=== PATIENT | female | born 1990 | race Caucasian/White ===

== ENCOUNTER 2018-01-10 11:25 | Emergency (ER) | payer MEDICAID, OTHER ==
[2018-01-10 11:35] VITALS: RESP 16; TEMP 98.2; O2SAT 99
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
[2018-01-10 12:55] VITALS: BP 129/82; PULSE 100
== END 2018-01-10 12:55 | disposition home or self-care (01) ==
DX: S39.012A Strain of muscle, fascia and tendon of lower back, initial encounter (principal); J45.909 Unspecified asthma, uncomplicated; F17.200 Nicotine dependence, unspecified, uncomplicated; Z87.39 Personal history of other diseases of the musculoskeletal system and connective tissue; X50.0XXA Overexertion from strenuous movement or load, initial encounter

== ENCOUNTER 2018-08-31 07:22 | Emergency (ER) | payer MEDICAID, OTHER ==
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
[2018-08-31] MEDS ORDERED: AZITHROMYCIN 250 MG TAB PO ONE (08:31)
[2018-08-31] MEDS ORDERED: ULIPRISTAL ACETATE 30 MG TAB PO ONE (08:31)
[2018-08-31 11:14] VITALS: BP 120/84
== END 2018-08-31 10:30 | disposition home or self-care (01) ==
LOC: EEVIPCON 07:22
DX: T74.21XA Adult sexual abuse, confirmed, initial encounter (principal); F17.200 Nicotine dependence, unspecified, uncomplicated; Y07.9 Unspecified perpetrator of maltreatment and neglect
CPT/HCPCS: J0696

== ENCOUNTER 2019-01-20 20:33 | Emergency (ER) | payer MEDICAID, OTHER ==
[2019-01-20] MEDS ORDERED: ONDANSETRON 4 MG/2 ML VIAL IVP ONE (20:50)
[2019-01-20] MEDS ORDERED: HYDROmorphONE/DILAUDID 2 MG/ML INJ IVP ONE (20:50)
[2019-01-20] MEDS ORDERED: NS 1,000 ML IV ONE (20:50)
[2019-01-20] MEDS ORDERED: ONDANSETRON 4 MG/2 ML VIAL ONE (20:51)
[2019-01-20] MEDS ORDERED: HYDROmorphONE/DILAUDID 1 MG/ML INJ ONE (20:51)
--- NOTE | 2019-01-20 20:53 | EDPHY ---
H & P Stated Complaint: abd pain nvd Time Seen by Provider: 01/20/19 20:44 HPI/ROS: CHIEF COMPLAINT: Right lower quadrant pain HISTORY OF PRESENT ILLNESS: Patient is a 28-year-old female who comes to the emergency department complaining of right lower quadrant pain that began 2 hr ago and is severe. She states that she had diarrhea several times earlier today and this has subsided. She then began having abdominal pain a couple of hours ago and has vomited twice nonbloody. No fever. No history of abdominal surgery. She does have previous history of ovarian cysts and is not sure if this is similar. No vaginal bleeding or discharge. She states she does finished her period last week. She denies risk of . She has never had pain like this before. Feels better to lay on her left side. No trauma. No fever. Severity: Severe Modifying factors: Worsened by lying flat on her back. REVIEW OF SYSTEMS: Constitutional: denies: chills, fever, recent illness, recent injury EENTM: denies: blurred vision, double vision, nose congestion Respiratory: denies: cough, shortness of breath Cardiac: denies: chest pain, irregular heart rate, lightheadedness, palpitations Gastrointestinal/Abdominal: See HPI Genitourinary: denies: dysuria, frequency, hematuria, pain Musculoskeletal: denies: joint pain, muscle pain Skin: denies: lesions, rash, jaundice, bruising Neurological: denies: headache, numbness, paresthesia, tingling, dizziness, weakness Hematologic/Lymphatic: denies: blood clots, easy bleeding, easy bruising Immunologic/allergic: denies: HIV/AIDS, transplant 10 systems reviewed and negative except as noted EXAM: GENERAL: Crying, screaming out in pain, HEAD: Atraumatic, normocephalic. EYES: Pupils equal round and reactive to light, extraocular movements intact, sclera anicteric, conjunctiva are normal. ENT: TMs normal, nares patent, oropharynx clear without exudates. Moist mucous membranes. NECK: Normal range of motion, supple without lymphadenopathy or JVD. LUNGS: Breath sounds clear to auscultation bilaterally and equal. No wheezes rales or rhonchi. HEART: Regular rate and rhythm without murmurs, rubs or gallops. ABDOMEN: Diffuse pain that appears to radiate to the right lower quadrant. Moderate guarding. BACK: No CVA tenderness, no spinal tenderness, step-offs or deformities EXTREMITIES: Normal range of motion, no pitting or edema. No clubbing or cyanosis. NEUROLOGICAL: Cranial nerves II through XII grossly intact. Normal speech, normal gait. 5/5 strength, normal movement in all extremities, normal sensation , normal reflexes PSYCH: Normal mood, normal affect. SKIN: Warm, dry, normal turgor, no visible rashes or lesions. Source: Patient Exam Limitations: No limitations - Personal History LMP (Females 10-55): 1-7 Days Ago Current Tetanus/Diphtheria Vaccine: Yes Current Tetanus Diphtheria and Acellular Pertussis (TDAP): Yes Tetanus Vaccine Date: 2009 - Medical/Surgical History Hx Asthma: Yes Hx Chronic Respiratory Disease: No Hx Diabetes: No Hx Cardiac Disease: No Hx Renal Disease: No Hx Cirrhosis: No Hx Alcoholism: No Hx HIV/AIDS: No Hx Splenectomy or Spleen Trauma: No Other PMH: Asthma - Family History Significant Family History: No pertinent family hx - Social History Smoking Status: Heavy smoker Alcohol Use: None Constitutional: Initial Vital Signs Temperature (C) 36.6 C 01/20/19 20:36 Heart Rate 132 H 01/20/19 20:36 Respiratory Rate 19 01/20/19 20:36 Blood Pressure 134/98 H 01/20/19 20:36 O2 Sat (%) 98 01/20/19 20:36 O2 Delivery Mode Room Air Allergies/Adverse Reactions: latex Allergy (Intermediate, Verified 10/08/16 22:42) Hives Home Medications: Medication Instructions Recorded Ondansetron Odt [Zofran Odt 4 mg 4 mg PO Q4 PRN #20 tab 01/20/19 (RX)] Xanax 01/20/19 morphINE IR [morphINE IR 15 mg (*)] 15 mg PO Q3-4PRN PRN #14 tab 01/20/19 Medical Decision Making - Diagnostics Imaging: Discussed imaging studies w/ diesel trailer mechanic Radiologist ED Course/Re-evaluation: 9:20 p.m. the patient is still writhing in pain. She has received Dilaudid. I will order ketamine. 10:20 p.m. the patient's pain is controlled and she was resting in the room and then her pain seemed to increase. Will treat with Toradol and Valium. She takes Xanax regularly for anxiety. Her states that she has been dealing with what they thought was an ovarian cyst for about 3 months. Previously she had been on control to help control them but is not currently. We discussed follow-up with OBGYN and expected management verses medication verses procedural. Awaiting ultrasound official report. 10:45 p.m. We discussed the ultrasound. Patient and are very much relieved. We had a long discussion about pain management home as well as follow -up with OBGYN and hormone treatment. Patient remains quite dramatic but pain seems to be controlled. Will plan to discharge with prescriptions. Differential Diagnosis: Partial list of the Differential diagnosis considered include but were not limited to; ovarian cyst, ovarian torsion, appendicitis, and although unlikely based on the history and physical exam, I also considered kidney stone, urinary tract infection, , ectopic. - Data Points Laboratory Results: Laboratory Results 01/20/19 20:51 01/20/19 20:51 Medications Given: Discontinued Medications Diazepam (Valium) 5 mg IVP EDNOW ONE Stop: 01/20/19 22:20 Last Admin: 01/20/19 22:26 Dose: 5 mg Hydromorphone HCl (Dilaudid) 1 mg IVP EDNOW ONE Stop: 01/20/19 20:51 Last Admin: 01/20/19 20:57 Dose: 1 mg Sodium Chloride (Ns) 1,000 mls @ 0 mls/hr IV EDNOW ONE; Wide Open PRN Reason: Protocol Stop: 01/20/19 20:51 Last Admin: 01/20/19 20:56 Dose: 1,000 mls Ketamine HCl (Ketamine) 15 mg IVP EDNOW ONE Stop: 01/20/19 21:19 Last Admin: 01/20/19 21:30 Dose: 15 mg Ketorolac Tromethamine (Toradol) 30 mg IVP EDNOW ONE Stop: 01/20/19 22:19 Last Admin: 01/20/19 22:24 Dose: 30 mg Ondansetron HCl (Zofran) 4 mg IVP EDNOW ONE Stop: 01/20/19 20:51 Last Admin: 01/20/19 20:56 Dose: 4 mg Ondansetron HCl (Zofran Odt 4 Mg Prepack#2) 1 btl TAKEHOME EDNOW ONE Stop: 01/20/19 22:36 Last Admin: 01/20/19 23:03 Dose: 1 btl Oxycodone/Acetaminophen (Percocet 5/325mg Prepack#4) 1 btl TAKEHOME EDNOW ONE Stop: 01/20/19 22:36 Last Admin: 01/20/19 23:02 Dose: 1 btl Departure - Departure Disposition: Home, Routine, Self-Care Clinical Impression: Ovarian cyst, right Condition: Fair Instructions: Oxycodone/Acetaminophen (By mouth), Ondansetron (By mouth), Ovarian Cyst (ED) Referrals: NONE *PRIMARY CARE P,. [Primary Care Provider] - As per Instructions Prescriptions: morphINE IR [morphINE IR 15 mg (*)] 15 mg PO Q3-4PRN PRN #14 tab PRN Reason: Pain, Severe Ondansetron Odt [Zofran Odt 4 mg (RX)] 4 mg PO Q4 PRN #20 tab PRN Reason: Nausea & Vomiting
[2019-01-20 21:09] LABS: PLATELET COUNT 377 10^3/uL (150-400)
[2019-01-20] MEDS ORDERED: KETAMINE 200 MG/20 ML VIAL IVP ONE (21:18)
[2019-01-20] MEDS ORDERED: KETAMINE 200 MG/20 ML VIAL ONE (21:19)
[2019-01-20] MEDS ORDERED: KETOROLAC 30 MG/1 ML SDV IVP ONE (22:18)
[2019-01-20] MEDS ORDERED: DIAZEPAM 5 MG/ML 1 ML SYR IVP ONE (22:19)
[2019-01-20] MEDS ORDERED: ONDANSETRON 4MG PREPACK#2 BTL TAKEHOME ONE (22:35)
[2019-01-20] MEDS ORDERED: OXYCODONE/APAP 5/325MG PREPACK#4 BTL TAKEHOME ONE (22:35)
[2019-01-20 23:08] VITALS: BP 115/80
== END 2019-01-20 23:07 | disposition home or self-care (01) ==
DX: N83.291 Other ovarian cyst, right side (principal); E86.9 Volume depletion, unspecified
CPT/HCPCS: 96374; J1170; J1885; J2405; J3360

== ENCOUNTER 2019-02-19 00:26 | Inpatient (IN) | payer OTHER ==
[2019-02-19] MEDS ORDERED: NS 2,000 ML IV ONE (00:34)
--- NOTE | 2019-02-19 00:38 | EDPHY ---
H & P Source: Patient, EMS Exam Limitations: Clinical condition, Intoxication - Personal History Tetanus Vaccine Date: 2009 - Medical/Surgical History Hx Asthma: Yes Hx Chronic Respiratory Disease: No Hx Diabetes: No Hx Cardiac Disease: No Hx Renal Disease: No Hx Cirrhosis: No Hx Alcoholism: No Hx HIV/AIDS: No Hx Splenectomy or Spleen Trauma: No Other PMH: Asthma - Social History Smoking Status: Heavy smoker Time Seen by Provider: 02/19/19 00:35 HPI/ROS: HPI CHIEF COMPLAINT: Polysubstance overdose, SI HISTORY OF PRESENT ILLNESS: Patient is a 28-year-old female she arrives to the emergency room by EMS for polysubstance overdose it is reported that she drank a unknown amount of alcohol, took morphine sulfate, as well as numerous tabs of Ambien. When EMS arrived they found her unresponsive, however they gave her 2 mg IV Narcan and this caused her to become awake. She did not vomit and she did not become agitated. They transported her here upon arrival she is intoxicated however answers my questions. She states she did not wake up in the mornings reason why she took all these medications. She is unsure how much morphine and Ambien she took. Past Medical History: History of depression, bipolar disorder Past Surgical History: Denies surgical history Social History: Alcohol this evening unknown amount. Family History: Noncontributory ROS REVIEW OF SYSTEMS: Limited due to intoxication and mental state, Exam Constitutional triage nursing summary reviewed, vital signs reviewed, awake/ alert. Tachycardic in the 1 teens. Eyes normal conjunctivae and sclera, EOMI, PERRLA. HENT normal inspection, atraumatic, moist mucus membranes, no epistaxis, neck supple/ no meningismus, no raccoon eyes. Respiratory clear to auscultation bilaterally, normal breath sounds, no respiratory distress, no wheezing. Cardiovascular tachycardia, regular rhythm, no murmur, no edema, distal pulses normal. Gastrointestinal soft, non-tender, no rebound, no guarding, normal bowel sounds, no distension, no pulsatile mass. Genitourinary no CVA tenderness. Musculoskeletal no midline vertebral tenderness, full range of motion, no calf swelling, no tenderness of extremities, no meningismus, good pulses, neurovascularly intact. Skin left wrist: Superficial vertically oriented multiple lacerations, none of which require suture. . Neurologic awake, alert and oriented x 3, AAOx3, moves all 4 extremities equally, motor intact, sensory intact, CN II-XII intact, normal cerebellar, normal vision, normal speech. Psychiatric tearful, flat affect, depressed, suicidal Heme/Lymph/Immune no lymphadenopathy. Differential Diagnosis: Includes but is not limited to in a particular order polysubstance overdose, alcohol intoxication, narcotic overdose, Ambien overdose Medical Decision Making: Plan for this patient IV establishment IV fluid bolus , EKG for overdose, basic labs, Tylenol salicylate level, IV fluids, monitoring analyst, pulse ox in close monitoring. If patient recent dates may need to give Narcan. Re-evaluation: EKG interpretation by me on record in [employer] system. Impression time of EKG 005: Sinus rhythm rate of 96 no prolonged intervals. Unremarkable EKG. Alcohol level 196. Potassium low at 2.9 will be repleted. 0655: Patient signed over at 7:[address] Marshall. Patient pending eval. On m1, SI, Etoh. Slowly sobering. Ambualted well to the bathroom. ( Marshal Vicente) Constitutional: Initial Vital Signs Temperature (C) 36.8 C 02/19/19 00:30 Heart Rate 119 H 02/19/19 00:30 Respiratory Rate 18 02/19/19 00:30 Blood Pressure 146/98 H 02/19/19 00:30 O2 Sat (%) 94 02/19/19 00:30 O2 Delivery Mode Room Air O2 (L/minute) 2 Allergies/Adverse Reactions: latex Allergy (Intermediate, Verified 02/19/19 00:46) Hives Home Medications: Medication Instructions Recorded Ondansetron Odt [Zofran Odt 4 mg 4 mg PO Q4 PRN #20 tab 01/20/19 (RX)] Xanax 01/20/19 morphINE IR [morphINE IR 15 mg (*)] 15 mg PO Q3-4PRN PRN #14 tab 01/20/19 Clindamycin 150 mg PO 02/19/19 Ibuprofen 600 mg PO 02/19/19 Zolpidem Tartrate [Ambien 5MG (*)] 5 mg PO HS 02/19/19 Medical Decision Making Other Provider: Accepted for transfer to by Francisco SHAW. (Wilfrido Marshall) - Data Points Laboratory Results: Laboratory Results 02/19/19 00:44 02/19/19 00:44 02/19/19 02/19/19 02/19/19 06:50 00:44 00:44 WBC RBC Hgb Hct MCV MCH MCHC RDW Plt Count MPV Neut % (Auto) Lymph % (Auto) [place] % (Auto) Eos % (Auto) Baso % (Auto) Nucleat RBC Rel Count Absolute Neuts (auto) Absolute Lymphs (auto) Absolute Monos (auto) Absolute Eos (auto) Absolute Basos (auto) Absolute Nucleated RBC Immature Gran % Immature Gran # Sodium Potassium Chloride Carbon Dioxide Anion Gap BUN Creatinine Estimated GFR Glucose Calcium Beta HCG, Qual NEGATIVE Salicylates Urine Opiates Screen NEGATIVE (NEGATIVE) Acetaminophen < 10 mcg/mL L mcg/mL (10-30) Urine Barbiturates NEGATIVE (NEGATIVE) Ur Phencyclidine Scrn NEGATIVE (NEGATIVE) Ur Amphetamine Screen NEGATIVE (NEGATIVE) U Benzodiazepines Scrn NEGATIVE (NEGATIVE) Urine Cocaine Screen NEGATIVE (NEGATIVE) U Marijuana (THC) Screen NEGATIVE (NEGATIVE) Ethyl Alcohol 02/19/19 02/19/19 00:44 00:44 WBC 4.83 10^3/uL 10^3/uL (3.80-9.50) RBC 3.96 10^6/uL L 10^6/uL (4.18-5.33) Hgb 13.5 g/dL g/dL (12.6-16.3) Hct 38.9 % % (38.0-47.0) MCV 98.2 fL fL (81.5-99.8) MCH 34.1 pg pg (27.9-34.1) MCHC 34.7 g/dL g/dL (32.4-36.7) RDW 13.2 % % (11.5-15.2) Plt Count 275 10^3/uL 10^3/uL (150-400) MPV 9.4 fL fL (8.7-11.7) Neut % (Auto) 45.8 % % (39.3-74.2) Lymph % (Auto) 40.0 % % (15.0-45.0) [place] % (Auto) 11.6 % % (4.5-13.0) Eos % (Auto) 1.0 % % (0.6-7.6) Baso % (Auto) 1.0 % % (0.3-1.7) Nucleat RBC Rel Count 0.0 % % (0.0-0.2) Absolute Neuts (auto) 2.21 10^3/uL 10^3/uL (1.70-6.50) Absolute Lymphs (auto) 1.93 10^3/uL 10^3/uL (1.00-3.00) Absolute Monos (auto) 0.56 10^3/uL 10^3/uL (0.30-0.80) Absolute Eos (auto) 0.05 10^3/uL 10^3/uL (0.03-0.40) Absolute Basos (auto) 0.05 10^3/uL 10^3/uL (0.02-0.10) Absolute Nucleated RBC 0.00 10^3/uL 10^3/uL (0-0.01) Immature Gran % 0.6 % % (0.0-1.1) Immature Gran # 0.03 10^3/uL 10^3/uL (0.00-0.10) Sodium 142 mEq/L mEq/L (135-145) Potassium 2.9 mEq/L L mEq/L (3.5-5.2) Chloride 107 mEq/L mEq/L (97-110) Carbon Dioxide 21 mEq/l L mEq/l (22-31) Anion Gap 14 mEq/L mEq/L (6-14) BUN 6 mg/dL L mg/dL (7-23) Creatinine 0.7 mg/dL mg/dL (0.6-1.0) Estimated GFR > 60 Glucose 103 mg/dL H mg/dL (70-100) Calcium 9.2 mg/dL mg/dL (8.5-10.4) Beta HCG, Qual Salicylates < 1.0 mg/dL L mg/dL (2.0-20.0) Urine Opiates Screen Acetaminophen < 10 mcg/mL L mcg/mL (10-30) Urine Barbiturates Ur Phencyclidine Scrn Ur Amphetamine Screen U Benzodiazepines Scrn Urine Cocaine Screen U Marijuana (THC) Screen Ethyl Alcohol 196 mg/dL H mg/dL (0-10) Medications Given: Discontinued Medications Sodium Chloride (Ns) 2,000 mls @ 0 mls/hr IV ONCE ONE PRN Reason: Wide Open Stop: 02/19/19 00:35 Last Admin: 02/19/19 00:50 Dose: 2,000 mls Potassium Chloride (Potassium Cl 10 Meq (Premix)) 100 mls @ 100 mls/hr IV Q1H EMILY Stop: 02/19/19 03:59 Last Admin: 02/19/19 03:03 Dose: 100 mls Nicotine (Nicoderm Cq) 21 mg TD EDNOW ONE Stop: 02/19/19 09:32 Last Admin: 02/19/19 09:34 Dose: 21 mg Potassium Chloride (Klor-Con) 20 meq PO ONCE ONE Stop: 02/19/19 01:49 Last Admin: 02/19/19 01:57 Dose: 20 meq Departure - Departure Disposition: [facility] Clinical Impression: Suicidal ideation, Alcohol abuse, Alcoholic intoxication, Hypokalemia Condition: Fair Referrals: Patient,NotPresent [Unknown] - As per Instructions
[2019-02-19 01:15] LABS: PLATELET COUNT 275 10^3/uL (150-400)
[2019-02-19] MEDS ORDERED: POTASSIUM CL 20 MEQ TAB PO ONE ×2 (01:48→12:20)
[2019-02-19] MEDS: POTASSIUM Cl (KCl) 100 ML IV SCH ×2 (01:57→03:03)
[2019-02-19] MEDS ORDERED: NICOTINE 21 MG/24 HR PATCH TD ONE (09:31)
--- NOTE | 2019-02-19 13:03 | PDCONSULT ---
Mailing Section Clerk Note: HOSPITALIST HISTORY AND PHYSICAL CC: Suicide attempt/polysubstance abuse HPI: 28 y/o w/hx of asthma, depression and anxiety presents on a M1 hold after suicide attempt. She had 12 shots of alcohol, 8 tabs of Morphine IR, and 32 tabs of Ambien and also tired to cut herself on her left wrist. She has had several suicide thoughts, this was her first attempt. She tells me for the last few weeks, she has felt hopeless w/ getting appropriate resources for mental help as well as finances not being optimal so she thought suicide was the only solution. EMS found her unresponsive and she received 2 mg of Narcan. She awoke and did not vomit nor was she combative. She denies CP, palpitations, vomiting, diarrhea, fever or chills. Endorses mild nausea. Pmx/Psx: Depression, bipolar, anxiety, ovarian cysts, asthma Social: Smokes a pack of cigarettes a day. 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 Tachycardic. Respiratory: Diminished lung sounds throughout GI: Soft, non-tender abdomen. Hypoactive BS. : No bladder tenderness or fullness Musculoskeletal: Full ROM, no pain or joint effusions/tenderness Skin: left wrist wound, does not appear infected Neuro: CLINICIAN ONCOLOGY 2-12 intact, A&Ox3 Psych: suicidal ideation/attempt, depressed Allergy: latex Lab data and imaging were reviewed. EKG Sinus tachycardia. Etoh levels 196, low acetaminophen and salicylate levels. Potassium 2.9. Case discussed w/ admitting physician, Dr. Sharath Ferrera. A/P: 28 y/o female presents w/suicide attempt w/etoh, Morphine IR and Ambien intake as well as attempting to cut herself on her left wrist. Hemodynamically stable BP 136/85, HR 82, Resp 17, 36.9c, 94% RA -She received potassium PO/IV 40meQ in ED + 2L NS. Rechecked potassium/magnesium /acetaminophen w/the following results: 3.7/1.4/<10. May need additional magnesium when in unit. Cont to monitor electrolytes. -Received nicotine patch in ED; wanting a cigarette -She is tolerating eating and drinking fluids -Medically cleared to transfer to behavioral health
--- NOTE | 2019-02-19 13:45 | PDCONSULT ---
Domestic Helper Note: patient seen in Er, after attempted suice by ingestion and by cutting left wrist. labs notable for low potassium which was repleted in ER. Repeat WNL. left wrist lacerations appear superficial and do no require any surgical intervention. examination reassuring and vitals WNL. I agree with Naz Myers assessment and plan.
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
--- NOTE | 2019-02-19 15:09 | ASMTTCLDSP ---
TLC Discharge Disposition Disposition: Answers: Admit Disposition Notes: Notes: Admit 3N. Discharge Concerns/Recommendations: Notes: In consultation with [facility] ED physician, Wilfrido Marshall MD and on-call psychiatric nurse practitioner, Hugo Singh APN, both concurred that pt appears to meet 27-65 criteria requiring psychiatric hospitalization as pt appears to be at risk of harm to self due to a mental illness condition. Pt was read the Patient Rights and Responsibilities Statement on 02/19/19 1100 hrs, original placed on chart, and was given photocopy of Rights. Pt signed the Patient Rights. Pt was given the 3N prohibited belongings list while in the ED. Was patient given the Answers: Yes Inpatient Behavioral Health Prohibited Belongings List while in the ED? For inpatient Hugo Singh APN admission, the following psychiatrist agreed to accept patient for admission to Behavioral Health ([facility]): Type of Hold: Answers: M1/72-hour Hold Hold initiated by: Answers: Police Date Signed: 02/19/2019 03:09 PM Electronically Signed By:Richy Costa
[2019-02-19] MEDS ORDERED: ACETAMINOPHEN 325 MG TAB PO PRN (15:54)
[2019-02-19] MEDS ORDERED: LORazepam 0.5 MG TAB PO PRN (15:54)
[2019-02-19] MEDS ORDERED: MAGNESIUM HYDROXIDE 30 ML UDCUP PO PRN (15:54)
[2019-02-19] MEDS ORDERED: MAG HYDROX/AL HYDROX/SIMETH 30 ML UDCUP PO PRN (15:54)
[2019-02-19] MEDS ORDERED: THIAMINE HCL 100 MG TAB PO ONE (16:18)
[2019-02-19] MEDS ORDERED: chlordiazePOXIDE 25 MG CAP PO PRN (16:18)
[2019-02-19] MEDS ORDERED: IBUPROFEN 200 MG TAB PO PRN (16:18)
[2019-02-19] MEDS ORDERED: PROMETHAZINE HCL 25 MG SUPPR PR PRN (16:18)
[2019-02-19] MEDS: NICOTINE POLACRILEX 2 MG GUM B PRN ×3 (17:43→22:09)
[2019-02-19] MEDS: PROMETHAZINE HCL 25 MG TAB PO PRN (23:43)
[2019-02-20] MEDS: PROMETHAZINE HCL 25 MG TAB PO PRN ×2 (08:17→20:44)
[2019-02-20] MEDS: THIAMINE HCL 100 MG TAB PO SCH (08:17)
[2019-02-20] MEDS: FOLIC ACID 1 MG TAB PO SCH (08:17)
[2019-02-20] MEDS: MULTIVITAMINS 1 EACH TAB PO SCH (08:18)
[2019-02-20] MEDS: SERTRALINE HCL 50 MG TAB PO SCH (08:19)
[2019-02-20] MEDS: NICOTINE POLACRILEX 2 MG GUM B PRN ×5 (09:26→20:49)
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
[2019-02-20] MEDS ORDERED: chlordiazePOXIDE 25 MG CAP PO ONE (12:53)
--- NOTE | 2019-02-20 13:35 | SOAPPROG ---
SOAP Progress Note Assessment/Plan: Assessment: Self-inflicted lacerations. No signs or symptoms of infection. No need for antibiotics. 02/20/19 13:35 Subjective: Asked to see patient regarding laceration. Nurse reports she had in an unfinished prescription of clindamycin for a staph cellulitis on her hand. She also has multiple superficial lacerations that were self-inflicted prior to her psychiatric admission. She feels everything is healing well. Objective: Vital Signs Temp Pulse Resp BP Pulse Ox 36.7 C 80 16 121/83 H 93 02/20/19 11:59 02/20/19 11:59 02/20/19 11:59 02/20/19 11:59 02/20/19 11:59 Physical Exam - Physical Exam General Appearance: WD/WN, alert, no apparent distress Skin: normal color, warm/dry, other (Multiple superficial lacerations to the left forearm in craniocaudal direction with no erythema and no drainage. Well- healed laceration to 3rd digit of the left hand.) ICD10 Worksheet Patient Problems: Problems Problem Status Onset Alcohol abuse Acute Alcoholic intoxication Acute Hypokalemia Acute Major depressive disorder, severe Acute Suicidal ideation Acute Deliberate self-cutting Acute
--- NOTE | 2019-02-20 13:48 | ASMTBHMTP ---
Master Treatment Plan Master Treatment Plan Answers: Depressed Mood with for: Suicidal Ideation Date: 02/20/2019 Diagnosis on Admission: Major Depressive Disorder, recurrent, severe 296.33 (F33.2) Expected length of stay: 3-5 Reason for admission: Notes: The patient reported a suicide attempt by overdose. The patient's mother intervened and called police. The patient had been planning the attempt for two weeks. She has a hx of self harm bhx including cutting. Patient's stated presenting problems: Notes: The patient stated, "Everything... When I wake up and see someone smiling. It is not worth it." The patient cited economic issues, relationship distress, and employment challenges. 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 Initial disposition plan/considerations: Notes: The patient lives with one roommate. She will return home to her routine upon discharge. Master Treatment Plan Required Signatures Psychiatrist signature: Answers: Psychiatrist: RN on-shift signature: Answers: RN: Patient signature: Answers: Patient: Date Signed: 02/20/2019 01:47 PM Electronically Signed By:Kayleen Valentine
[2019-02-20] MEDS ORDERED: QUEtiapine FUMARATE 50 MG TAB PO SCH (21:00)
[2019-02-21] MEDS ORDERED: GABAPENTIN 300 MG CAP PO ONE (10:43)
[2019-02-21] MEDS: FOLIC ACID 1 MG TAB PO SCH (11:11)
[2019-02-21] MEDS: MULTIVITAMINS 1 EACH TAB PO SCH (11:15)
[2019-02-21] MEDS: SERTRALINE HCL 50 MG TAB PO SCH (11:16)
[2019-02-21] MEDS: THIAMINE HCL 100 MG TAB PO SCH (11:16)
--- NOTE | 2019-02-21 11:40 | ASMTCMCOM ---
CM Note CM Note Notes: Discussed patient in daily rounds this morning. Per TECHNICAL COMMUNICATOR, patient is stable for discharge today. CM has scheduled the following follow-up appointments for her: [facility] - [facility] for March 24 and PCP - [facility] for February 24. Available discharge paperwork faxed to [facility] @ #[phone] per their request. Patient stated she needs to establish care with a PCP as well and was okay with CM coordinating follow-up with [facility]. Patient's boyfriend will arrive on the unit at approx. 16:30 today to transport home. CM available for further needs. Date Signed: 02/21/2019 11:40 AM Electronically Signed By:Sarah Peralta RN
--- NOTE | 2019-02-21 12:52 | ASMTBHDC ---
Notes Note: Notes: Pt. reports feeling "anxious". Pt. stated she slept "on and off" adding she normally gets around 5 hours of sleep per night. Pt. reports "don't really eat a lot" adding she has "dealt with anorexia in the past". Pt. reports not being on an anti-anxiety medication. Pt. reports using drinking as her stress reliever. Pt. stated her current medications are fine, adding her stomach has been hurting, but this could be due to not eating or stress. Pt. reports "haven't missed one [group]". Pt. denied SI, HI, and AVH. Pt. reports "little" paranoia, about "the real world". CC and pt. discussed different coping skills and techniques the pt. could use at work discreetly. Pt. gave CC her FMLA paperwork to give to pt's provider to complete. Pt. presents as alert, anxious, good eye contact, a bit unkempt, snapping her fingers to self soothe, soft spoken, and cooperative. Staff report pt. sleeping 8 hours and being medication compliant. CC gave FMLA paperwork to provider, provider unsure about completing, stating he will speak with pt. about the paperwork. Pt's follow up appointments: [facility] [place] [address] #[phone] March 24 @ 09:00 a.m. You will also be on a waitlist for [facility] - if an earlier appt date comes available, [facility] will call you. [facility] PCP Appointment on February 24 @ 11:15 a.m. [facility] [address] [place] [address] #[phone] Please have your Photo I.D., Insurance card, and list of medications. Date Signed: 02/21/2019 12:52 PM Electronically Signed By:Adry York
--- NOTE | 2019-02-21 13:18 | BDS ---
[f rep st] BEHAVIORAL HEALTH DISCHARGE SUMMARY REASON FOR ADMISSION: From the ED note dated 02/19/2019, the patient arrived to the emergency room by EMS for polysubstance overdose. The patient was admitted involuntarily and on an M1 hold due to being a danger to herself. The patient was admitted for safety, crisis stabilization, and medication management. ADMITTING DIAGNOSES: 1. Major depressive disorder, recurrent episode, severe, with anxious distress. 2. Alcohol use disorder, severe dependence. 3. Nicotine dependence. ADMISSION PHYSICAL EXAM: Patient was seen for medical clearance for inpatient psychiatric hospitalization on 02/19/2019. The patient was medically cleared for inpatient psychiatric hospitalization and treatment. Please refer to procurement consultant notes dated 02/19/2019. ADMISSION LABS: 1. CBC within normal limits except red blood cells were low at 3.96. 2. BMP within normal limits except carbon dioxide was low at 21, BUN was low at 6, glucose was elevated at 103. 3. Magnesium was low at 1.4. 4. Lipid panel within normal limits except LDL cholesterol calculated was low at 11, non-HDL cholesterol was low at 33, HDL cholesterol was elevated at 112, LDL/HDL ratio was low at 0.10. 5. Liver function within normal limits. 6. Beta hCG qualitative test was negative. 7. Toxicology screen was negative for substances screened. Ethyl alcohol level was 196. MAJOR PROCEDURES OR TESTS: None. HOSPITAL COURSE: The most prominent symptoms and behaviors while the patient was here were reports of severe anxiety and depression. Treatment modalities utilized were milieu and group therapy. CIWA protocol was started to monitor patient for alcohol withdrawal symptoms. The patient reported some symptoms of alcohol withdrawal including nausea, vomiting, and cold sweats. At time of discharge, the patient was no longer showing signs of alcohol withdrawal and was expressing no symptoms of alcohol withdrawal. CIWA protocol was discontinued. Zoloft 50 mg p.o. daily was started to target mood symptoms, was tolerated with no report of side effects. Seroquel 50 mg p.o. at bedtime was started to target mood symptoms and insomnia related to depression and anxiety, was tolerated with no report of side effects and with good response. Gabapentin 300 mg p.o. t.i.d. was started to target anxiety symptoms and was tolerated with no report of side effects. Patient has improved considerably with no signs of psychiatric symptoms and no psychiatric symptoms expressed. Patient reports she has improved since admission, states to be in stable condition, feels safe to discharge, and she contracts for safety. Patients response to treatment was good. There were no adverse or unexpected results of treatment. The patient was safe throughout stay, active in treatment, engaged in groups, and was appropriate with staff. Patient met with treatment team prior to discharge to assess readiness to discharge and review discharge plan. The treatment team consensus is the patient in stable condition, has a safe discharge plan, and is ready to discharge today. CONDITION AT DISCHARGE: Patient is in stable condition and is no longer a danger to self or others, and is not gravely disabled due to mental illness. Patient is no longer in need of inpatient level of care, and can be safely and effectively treated within the community. The patients level of risk at time of discharge is low. MSE: The patient is casually dressed and with good hygiene , and looks stated age. Patient is sitting, posture is upright, and position is relaxed. Patient appears awake, alert, and responds appropriately and reasonably during interview. Patient is engaged, relates well to interviewer, and emotional facial expression is appropriate to situation and changes appropriately with topic. Patient is cooperative, makes comfortable eye contact , and movements are voluntary, deliberate, coordinated, and smooth and even with no inappropriate movements. Patient makes laryngeal sounds effortlessly and shares conversation appropriately; pace of conversation is appropriate, and stream of talking is fluent; articulation is clear and understandable; word choice is effortless and appropriate for education level; completes sentences, occasionally pausing to think; rate and volume are appropriate for interview and setting. Patient reports mood as euthymic. Patients affect is stable with full variable range, congruent with mood, and appropriate to speech and circumstances. Patient has linear and logical thinking, with no loose associations, tangential thought, thought blocking, concrete thinking, or any other signs of formal thought disorder. Patient denies suicidal and homicidal ideation, and denies hallucinations and delusions. Patient appears to be a reliable historian with sound judgement and good insight into current condition. Patient has no apparent dysfunction in recent or remote memory noted , and no evidence of gross cognitive dysfunction noted at any point during the interview. DISCHARGE DIAGNOSES: 1. Major depressive disorder, recurrent episode, severe, with anxious distress. 2. Alcohol use disorder, severe dependence. 3. Nicotine dependence. CURRENT MEDICATIONS: After reviewing options, risks, and benefits with the patient, the patient agrees to continue: 1. Seroquel 50 mg p.o. at bedtime. 2. Zoloft 50 mg p.o. daily. 3. Vitamin B1 at 100 mg p.o. daily. 4. Nicorette gum 2 mg q.1 hour p.r.n. 5. Multivitamin 1 each daily. 6. Gabapentin 300 mg p.o. t.i.d. The patient requests prescriptions for Zoloft, Seroquel, and gabapentin at time of discharge. Prescriptions for 30 days are provided. Prescriptions are reviewed with the patient at time of discharge to ensure accuracy and patient understanding. DISPOSITION: The patient left hospital independently and voluntarily and plans to return home with her boyfriend after discharge. FOLLOWUP: brand coordinator reports the appropriate outpatient follow-up services have been established and outpatient appointments have been scheduled. The patient received written instructions with times and dates of outpatient follow-up appointments. The following follow-up recommendations were provided to the patient at discharge: Continue psychotropic medications as prescribed and attend appointments as scheduled. Report any side effects to a psychiatric outpatient provider, a primary care provider, or other health inpatient care manager rn. Address any questions or problems concerning the psychotropic medications with a psychiatric outpatient provider, a primary care provider, or other health inpatient care manager rn. Contact [facility] or [facility], or go to the nearest emergency room, if you are ever a danger to yourself/others, or unable to care for yourself. As soon as possible, establish a routine medication management treatment with a psychiatric provider, establish routine therapy appointments, and follow-up with a primary care provider. SUBSTANCE ABUSE BRIEF INTERVENTION: Brief intervention regarding the risks of alcohol abuse is provided to patient with goal to reduce the risk of harm that could result from the continued use of alcohol, with the general aim to investigate the problem, raise awareness of problem, develop a solution with the patient, recommend a specific change or activity, and motivate the patient toward change. Assess substance abuse behavior and give supportive advice about harm reduction, recommend a reduction in hazardous/at-risk consumption patterns, and facilitate referrals for additional specialized treatment with transition of care specialist. Intermediate goal is for the patient to quit and attend outpatient substance abuse treatment. Intervention focus on intermediate goals to allow for more immediate success in the treatment process to keep the patient motivated. Review following with patient: Alcohol/Binge Drinking risks : short-term: injuries, violence, alcohol poisoning, risky sexual behaviors. Long-term: high blood pressure, stroke, liver disease, digestive problems, cancer, learning and memory problems, depression and anxiety, social problems, and alcohol dependence. OUTPATIENT SUBSTANCE ABUSE TREATMENT: Patient referred to outpatient provider and treatment for continued treatment related to substance abuse. LEGAL COURSE: Patient was admitted on an M1 hold for involuntary inpatient psychiatric hospitalization and treatment. The patient discharged today independently and voluntarily. ATTITUDE AT TIME OF DISCHARGE: The patients attitude was positive at time of discharge, and patient reports looking forward to discharging today. The patient reports she feels safe to discharge, is no longer a danger to herself or others, is in stable condition, and contracts for safety. Patient states she will continue medications as prescribed, and establish medication management treatment with an outpatient provider after discharge. Patient reports she understands the information that has been provided to her, and she understands, accepts, and agrees to psychotropic medications. Patient describes internal protective factors as the coping skills she has learned while hospitalized here, and she plans to continue to practice these coping skills after discharge. LABS AND RADIOLOGY STUDIES: There were no pending labs or studies at time of discharge. ADVANCE DIRECTIVES: There were no advance directives on file, and patient was full code during this hospitalization. The following psychotropic medication treatment informed consent and recommendations were provided to the patient at time of discharge. Patient reports she understands, accepts, and agrees to the information that has been provided. PSYCHOTROPIC MEDICATION TREATMENT INFORMED CONSENT and RECOMMENDATIONS: Review nature of condition, diagnosis, and prognosis. Review nature and purpose of psychotropic medication treatment. Review type of psychotropic medications being prescribed. Review risk and benefits of psychotropic medication treatment. Review probable length of time will need to take medications. Review risk and benefits of not undergoing psychotropic medication treatment. Review alternative treatments to psychotropic medications. Review psychotropic medications contraindications, side effects, and importance of reporting any side effects to a psychiatric provider, primary care provider, or other health inpatient care manager rn. Review importance of her asking a psychiatric provider or primary care provider any questions or problems concerning the psychotropic medications. Review importance of reporting to a psychiatric provider, primary care provider, or other health inpatient care manager rn if she plans to or becomes . Review safety plan and the importance to contact [facility] or [facility] , or go to the nearest emergency room, if ever a danger to yourself/others, or unable to care for yourself. Recommend upon discharge to establish routine medication management treatment with a psychiatric provider, establish routine therapy appointments, and follow-up with a primary care provider. Verify patient understands, accepts, and agrees to the information that has been provided. /[id number]/MODL MTDD
[2019-02-21 15:54] VITALS: BP 130/81
[2019-02-21] MEDS ORDERED: GABAPENTIN 300 MG CAP PO SCH (16:00)
--- NOTE | 2019-02-27 08:05 | CPEKG ---
Test Reason : OPEN Blood Pressure : / mmHG Vent. Rate : 096 BPM Atrial Rate : 096 BPM P-R Int : 157 ms QRS Dur : 083 ms QT Int : 365 ms P-R-T Axes : 064 -14 016 degrees QTc Int : 462 ms Sinus rhythm Confirmed by Marshal Vicente ([id number]) on 02/27/2019 8:03:59 AM Referred By: Marshal Vicente Confirmed By:Marshal Vicente
== END 2019-02-21 16:35 | disposition home or self-care (01) | DRG 885 ==
LOC: EDUNIT# → EEVIPCON 00:26 → BBEH 15:28
PROVIDERS: ADMIT Registered Nurse; ATTEND Registered Nurse
DX: F33.2 Major depressive disorder, recurrent severe without psychotic features (principal); F10.239 Alcohol dependence with withdrawal, unspecified; T42.6X2A Poisoning by other antiepileptic and sedative-hypnotic drugs, intentional self-harm, initial encounter; T40.602A Poisoning by unspecified narcotics, intentional self-harm, initial encounter; T51.0X2A Toxic effect of ethanol, intentional self-harm, initial encounter; R45.851 Suicidal ideations; E87.6 Hypokalemia; F17.210 Nicotine dependence, cigarettes, uncomplicated; F31.9 Bipolar disorder, unspecified; J45.909 Unspecified asthma, uncomplicated
CPT/HCPCS: 80305; 96365; G0480; J3480

== ENCOUNTER 2019-04-07 01:34 | Emergency (ER) | payer OTHER ==
[2019-04-07 01:51] LABS: PLATELET COUNT 306 10^3/uL (150-400)
[2019-04-07 03:03] VITALS: BP 103/65
--- NOTE | 2019-04-07 04:54 | EDPHY ---
H & P Stated Complaint: 6 weeks preg, vaginal bleeding earlier, abominal psin, ETOH Time Seen by Provider: 04/07/19 01:54 HPI/ROS: HPI The patient presents with abdominal pain, vaginal bleeding, vomiting, loss of consciousness. Per her report, the patient is approximately 6 weeks , [facility] She found out she was while she was admitted to [facility] for suicidal ideation about 1 month ago. At that time she went off of all of her antipsychotic medication. Today and yesterday she has had abdominal pain which is aching in nature in her lower abdomen. This morning she awoke up with vaginal bleeding at about 10: 30 a.m. Which has now subsided. She used about 1 pad for this. Tonight, she was sitting on the couch and went to stand and then lost consciousness, falling backwards. When she awoke she was oriented though felt somewhat dizzy. She does admit to drinking a few beers tonight. She reports suicidal thoughts without a plan at this time. She said she has not been eating or sleeping well. REVIEW OF SYSTEMS 10 systems were reviewed and negative with the exception of the elements mentioned in the history of present illness. PMHx: Bipolar disorder, asthma recent Soc Hx: Alcohol abuse, here with her boyfriend and friends who have been staying with her and watching over her closely PHYSICAL General Appearance: Alert, clearly intoxicated Eyes: Pupils equal and round no pallor or injection ENT, Mouth: Mucous membranes dry Respiratory: There are no retractions, lungs are clear to auscultation Cardiovascular: Regular rate and rhythm Gastrointestinal: Abdomen is soft and tender in the right lower quadrant Neurological: A&O, moves all extremities Skin: Warm and dry, no rashes Musculoskeletal: Neck is supple non tender Extremities: symmetrical, full range of motion Psychiatric: Patient is oriented X 3, there is no agitation Source: Patient Exam Limitations: No limitations - Personal History LMP (Females 10-55): Now Current Tetanus/Diphtheria Vaccine: Yes Current Tetanus Diphtheria and Acellular Pertussis (TDAP): Yes Tetanus Vaccine Date: 2009 - Medical/Surgical History Hx Asthma: Yes Hx Chronic Respiratory Disease: No Hx Diabetes: No Hx Cardiac Disease: No Hx Renal Disease: No Hx Cirrhosis: No Hx Alcoholism: No Hx HIV/AIDS: No Hx Splenectomy or Spleen Trauma: No Other PMH: Asthma, depression - Social History Smoking Status: Heavy smoker Constitutional: Initial Vital Signs Temperature (C) 36.7 C 04/07/19 01:40 Heart Rate 114 H 04/07/19 01:40 Respiratory Rate 18 04/07/19 01:40 Blood Pressure 126/79 H 04/07/19 01:40 O2 Sat (%) 96 04/07/19 01:40 O2 Delivery Mode Room Air Allergies/Adverse Reactions: latex Allergy (Intermediate, Verified 04/07/19 01:37) Hives Home Medications: Medication Instructions Recorded Clindamycin 150 mg PO TID 02/19/19 Ethinyl Estradiol/Drospirenone 1 each PO HS 02/19/19 [Candace 28 Tablet] Gabapentin [Neurontin 300 MG (*)] 300 mg PO TID 30 Days #90 cap 02/21/19 Multivitamins [Multivitamin (*)] 1 each PO DAILY tab 02/21/19 Nicotine Polacrilex [Nicorette gum 2 mg B Q1 PRN gum 02/21/19 (*)] QUEtiapine FUMARATE [Seroquel 50 50 mg PO HS 30 Days #30 tab 02/21/19 mg (*)] Sertraline HCl [Zoloft 50mg (*)] 50 mg PO DAILY 30 Days #30 tab 02/21/19 Thiamine HCl [Vitamin B-1] 100 mg PO DAILY tab 02/21/19 Medical Decision Making - Diagnostics Imaging Results: Pelvic ultrasound demonstrates single living IUP with estimated gestational age of 6 weeks, 5 days. Symmetric flow is identified to bilateral ovaries. Differential Diagnosis: This is a 29-year-old female who was approximately 6 weeks with history of mental health disease including bipolar disorder, now off of her medication because of her who presents from home with several days of abdominal pain, vaginal bleeding which has now resolved, nausea and vomiting with episode of what sounds to be syncope tonight in the setting of alcohol use. Here initially the patient is intoxicated though complaining of suicidal thoughts which she attributes to being off of her medication. I have placed her on an MT H hold. She underwent an ultrasound which did show a live 6 week IUP. No ovarian cysts were identified. Labs were checked and did reveal a leukocytosis which could be consistent with . Her other laboratory testing was normal. I suspect she has a threatened I have explained this to her. Her bleeding has not continued while in the emergency department. Once she was clinically sober, I reexamined her and she continues to have right lower quadrant abdominal tenderness. Given her normal pelvic ultrasound, I have recommended that she undergo right lower quadrant ultrasound to evaluate for appendicitis given her vomiting and leukocytosis. However, she refuses at this time as her boyfriend who is here with her needs to go to work and she can get a ride with him. I explained to her that if she leaves the emergency department there is a risk if she has appendicitis that she could develop peritonitis which could be very serious, a grave threat to her and her. She accepts this risk, she says that she must go home so that her boyfriend can get to work and this is very important. She says she can take a taxi back to the emergency department if her symptoms are worse in any way. She has left against medical advice. She does have follow-up with OBGYN in a few weeks. - Data Points Laboratory Results: Laboratory Results 04/07/19 01:43 04/07/19 01:43 04/07/19 04/07/19 04/07/19 01:43 01:43 01:43 WBC 14.04 10^3/uL H 10^3/uL (3.80-9.50) RBC 4.28 10^6/uL 10^6/uL (4.18-5.33) Hgb 14.8 g/dL g/dL (12.6-16.3) Hct 43.5 % % (38.0-47.0) MCV 101.6 fL H fL (81.5-99.8) MCH 34.6 pg H pg (27.9-34.1) MCHC 34.0 g/dL g/dL (32.4-36.7) RDW 12.9 % % (11.5-15.2) Plt Count 306 10^3/uL 10^3/uL (150-400) MPV 9.4 fL fL (8.7-11.7) Neut % (Auto) 70.7 % % (39.3-74.2) Lymph % (Auto) 20.3 % % (15.0-45.0) [place] % (Auto) 7.2 % % (4.5-13.0) Eos % (Auto) 0.9 % % (0.6-7.6) Baso % (Auto) 0.4 % % (0.3-1.7) Nucleat RBC Rel Count 0.0 % % (0.0-0.2) Absolute Neuts (auto) 9.94 10^3/uL H 10^3/uL (1.70-6.50) Absolute Lymphs (auto) 2.85 10^3/uL 10^3/uL (1.00-3.00) Absolute Monos (auto) 1.01 10^3/uL H 10^3/uL (0.30-0.80) Absolute Eos (auto) 0.12 10^3/uL 10^3/uL (0.03-0.40) Absolute Basos (auto) 0.05 10^3/uL 10^3/uL (0.02-0.10) Absolute Nucleated RBC 0.00 10^3/uL 10^3/uL (0-0.01) Immature Gran % 0.5 % % (0.0-1.1) Immature Gran # 0.07 10^3/uL 10^3/uL (0.00-0.10) Sodium 144 mEq/L mEq/L (135-145) Potassium 3.9 mEq/L mEq/L (3.5-5.2) Chloride 108 mEq/L mEq/L (97-110) Carbon Dioxide 21 mEq/l L mEq/l (22-31) Anion Gap 15 mEq/L H mEq/L (6-14) BUN 8 mg/dL mg/dL (7-23) Creatinine 0.7 mg/dL mg/dL (0.6-1.0) Estimated GFR > 60 Glucose 89 mg/dL mg/dL (70-100) Calcium 9.5 mg/dL mg/dL (8.5-10.4) Beta HCG, Quant 72584.00 mIU/mL H mIU/mL (0.00-4.83) Salicylates < 1.0 mg/dL L mg/dL (2.0-20.0) Acetaminophen < 10 mcg/mL L mcg/mL (10-30) Ethyl Alcohol 205 mg/dL H mg/dL (0-10) Patient ABO/Rh B POSITIVE Departure - Departure Disposition: Home, Routine, Self-Care Clinical Impression: First trimester , Right lower quadrant abdominal pain Alcohol intoxication Qualifiers: Complication of substance-induced condition: with delirium Qualified Code(s): F10.921 - Alcohol use, unspecified with intoxication delirium Vomiting Qualifiers: Vomiting type: unspecified Vomiting Intractability: non-intractable Nausea presence: with nausea Qualified Code(s): R11.2 - Nausea with vomiting, unspecified Syncope Qualifiers: Syncope type: unspecified Qualified Code(s): R55 - Syncope and collapse Condition: Good Instructions: Threatened Miscarriage (ED), At-Risk Alcohol Use (ED) Additional Instructions: You may have appendicitis right now which is a serious emergency. You should come back to the ER at any time if you would like to complete her evaluation. Drinking alcohol can seriously affect her in lead to alcohol syndrome which is a very serious problem for a child. You must stop drinking alcohol immediately. You cannot use any drugs. Please follow-up with [facility] for further mental health care. Referrals: [facility],. [Clinic] - As per Instructions [facility] [[facility]inic] - As per Instructions
== END 2019-04-07 05:08 | disposition home or self-care (01) ==
DX: O26.851 Spotting complicating pregnancy, first trimester (principal); O99.340 Other mental disorders complicating pregnancy, unspecified trimester; O99.330 Smoking (tobacco) complicating pregnancy, unspecified trimester; O21.9 Vomiting of pregnancy, unspecified; F10.921 Alcohol use, unspecified with intoxication delirium; R55 Syncope and collapse; F32.9 Major depressive disorder, single episode, unspecified; F17.200 Nicotine dependence, unspecified, uncomplicated; Z3A.01 Less than 8 weeks gestation of pregnancy
CPT/HCPCS: G0480